=== PATIENT | female | born 1955 | race Caucasian/White ===

== ENCOUNTER 2020-07-01 15:01 | Outpatient (CLI) | payer MEDICARE, SELFPAY ==
[2020-07-01 15:24] LABS: Basophils Percent Auto 0.4 % (0.2-1.2); Eosinophils Absolute Auto 0.3 K/mm3 (0-0.3); Eosinophils Percent Auto 2.8 % (0-4.4); Hematocrit 35.3 % (37.0-47.0); Hemoglobin 11.1 g/dL (12.0-15.0); Immature Granulocyte Absolute 0.03 K/mm3 (0.00-0.031); Immature Granulocyte Percent A 0.3 % (0-0.5); Lymphocytes Absolute Auto 3.91 K/mm3 (0.9-3.2); Lymphocytes Percent Auto 42.6 % (18.3-44.2); Mean Corpuscular HGB Conc 31.4 g/dl (32-36); Mean Corpuscular Hemoglobin 29.5 pg (26-34); Mean Corpuscular Volume 93.9 fl (80-100); Mean Platelet Volume 9.5 fl (7.4-10.4); Monocytes Percent Auto 10.5 % (2.6-8.5); Neutrophils Percent Auto 43.4 % (45.5-73.1); Platelet Count Result 536 k/mm3 (150-375); Red Blood Count 3.76 M/mm3 (4.2-5.4); Red Cell Distribution Width 12.5 % (11.5-14.5); White Blood Count 9.2 K/mm3 (4.5-10.0)
[2020-07-01 16:39] LABS: Iron 84 ug/dL (37-170)
[2020-07-01 16:43] LABS: Alanine Aminotransferase 44 U/L (4-35); Albumin Level 4.6 g/dL (3.5-5.1); Alkaline Phosphatase 76 U/L (38-126); Anion Gap 9 mmol/L (8-16); Aspartate Amino Transferase 31 U/L (14-36); Bilirubin,Total 0.2 mg/dL (0.2-1.3); Blood Urea Nitrogen 26 mg/dL (7-17); CRP < 0.5 mg/dL (<1.0); Calcium 9.8 mg/dL (8.4-10.2); Carbon Dioxide 25 mmol/L (22-30); Chloride 103 mmol/L (98-107); Estimated Glomerular Filt Rate > 60; Glucose 106 mg/dL (65-105); Lactate Dehydrogenase 414 U/L (313-618); Potassium 4.6 mmol/L (3.4-5.0); Sodium 137 mmol/L (137-145)
[2020-07-01 16:48] LABS: Percent Iron Saturation 18 % (20-50)
[2020-07-01 16:53] LABS: Erythrocyte Sedimentation Rate 24 mm/hr (0-20)
[2020-07-01 17:45] LABS: Folic Acid 4.9 ng/mL (2.76->20)
== END 2020-07-01 15:02 | disposition home or self-care (01) ==
PROVIDERS: PCP Internal Medicine; Visit Provider Internal Medicine Hematology & Oncology
DX: D64.9 Anemia, unspecified (principal)
CPT/HCPCS: 36415; 80053; 82607; 82728; 82746; 83540; 83550; 83615; 85025; 85652; 86140

== ENCOUNTER 2020-08-19 00:20 | Outpatient (CLI) | payer MEDICARE, SELFPAY ==
[2020-08-19 19:00] LABS: SARS-CoV-2 RNA PCR Negative
== END 2020-08-19 00:21 | disposition home or self-care (01) ==
LOC: ANHCOVIDDT 00:20
PROVIDERS: PCP Internal Medicine; Visit Provider Internal Medicine Gastroenterology
DX: Z01.812 Encounter for preprocedural laboratory examination (principal); Z20.828 Contact with and (suspected) exposure to other viral communicable diseases
CPT/HCPCS: 87635; C9803; U0003

== ENCOUNTER 2020-08-21 01:02 | Day surgery (SDC) | payer MEDICARE, SELFPAY ==
[2020-08-14 09:52] VITALS: BMI 29.9
[2020-08-21 10:41] VITALS: BP 175/86; PULSE 77; RESP 18; TEMP 36.3; O2SAT 100; BMI 30.7
--- NOTE | 2020-08-21 10:47 | WPDANESEPPF ---
Anes - Initial Pre Proc Eval Procedure: Operation Date: 08/21/20 11:00 Proposed Procedures p Screening Colonoscopy - Robinson Doyle MD Date/Time: 08/21/20 10:47 Surgeon: Robinson Doyle MD Pre Op Diagnosis: neoplasm screening Patient Data Age: 64 Gender: F Height: 5 ft 1 in Weight: 73.7 kg Last Vital Signs Temp 36.3 C L 08/21/20 10:41 Pulse 77 08/21/20 10:41 Resp 18 08/21/20 10:41 BP 175/86 H 08/21/20 10:41 Pulse Ox 100 08/21/20 10:41 Allergies Allergy/AdvReac Type Severity Reaction Status Date / Time amlodipine Allergy Severe Swelling Verified 08/21/20 10:48 Penicillins Allergy Intermediate Swelling, Verified 08/21/20 10:48 codeine AdvReac Severe Other Verified 08/21/20 10:48 erythromycin base AdvReac Intermediate Other Verified 08/21/20 10:48 Home Medications Medication Instructions Recorded Confirmed Type atorvastatin 40 mg PO DAILY 07/31/20 08/14/20 History fenofibrate nanocrystallized 48 mg PO DAILY 07/31/20 08/14/20 History lisinopril 10 mg PO DAILY 07/31/20 08/14/20 History metoprolol succinate 25 mg PO DAILY 07/31/20 08/14/20 History montelukast 10 mg PO DAILY 07/31/20 08/14/20 History omeprazole 20 mg PO DAILY 07/31/20 08/14/20 History Ferous Gluconate 27 mg PO DAILY 08/14/20 08/14/20 History Patient hx anesthesia problems: none Family hx anesthesia problems: none PMFSH Past Medical History Medical History (Updated 08/21/20 @ 10:47 by Naren Mederos MD) GERD (gastroesophageal reflux disease) HTN (hypertension) Hyperlipidemia Obesity Surgical History Surgical History (Updated 08/21/20 @ 10:48 by Naren Mederos MD) H/O laparoscopy History of section Social History Social History Smoking packs per day: 1 Smoking cigarettes per day: 20.0 Years smoked: 9 Smoking pack-years: 9.00 Smoking status: Former smoker Tobacco type: cigarettes Alcohol intake: current Drinks per week: 3 Alcohol use details: WINE Substance use: never Substance use type: does not use Gender identity (if verbalized by the patient): Female Spiritual care concerns: No Anes - Eval Final PreProcedure Day of Procedure 08/21/20 10:47 Patient weight: obese Heart: regular rate and rhythm Lungs: clear to auscultation Airway: Mallampati scale class II Neurological: alert and oriented Last oral intake: >/= 8 hours ASA classification: II Emergent: no Anesthetic plan: proceed Anesthesia type and monitoring: general GIVS and standard monitoring Informed Consent: The patient's anesthetic plan and its attendant risks and benefits were discussed with the patient/family/POA. Questions were solicited and answers provided to the satisfaction of the patient/family/POA.
--- NOTE | 2020-08-21 10:55 | PM.HPGS ---
History of Present Illness History of Present Illness Consent: Risks, benefits, and alternatives have been discussed and questions answered. Patient agrees to proceed with procedure. Chief complaint: neoplasm screening Narrative: Kathia Lorenzo is a 64 year old W female referred for screening colonoscopy. Last colonoscopy was 11 years ago. Patient however does have a family history of colon cancer in her father. Patient also history of anemia. I did perform a gastroscopy 2 years ago patient did have a gastric AVM and does have a prior to peptic ulcer disease. She denies any nonsteroidal inflammatory drugs. No change in bowel pattern no rectal bleeding no weight loss. PMFSH Past Medical History Medical History GERD (gastroesophageal reflux disease) HTN (hypertension) Hyperlipidemia Obesity Surgical History Surgical History H/O laparoscopy History of section Social History Social History Smoking packs per day: 1 Smoking cigarettes per day: 20.0 Years smoked: 9 Smoking pack-years: 9.00 Smoking status: Former smoker Tobacco type: cigarettes Alcohol intake: current Drinks per week: 3 Alcohol use details: WINE Substance use: never Substance use type: does not use Gender identity (if verbalized by the patient): Female Spiritual care concerns: No Meds Home Medications and Allergies Home Medications Medication Instructions Recorded Confirmed Type atorvastatin 40 mg PO DAILY 07/31/20 08/14/20 History fenofibrate nanocrystallized 48 mg PO DAILY 07/31/20 08/14/20 History lisinopril 10 mg PO DAILY 07/31/20 08/14/20 History metoprolol succinate 25 mg PO DAILY 07/31/20 08/14/20 History montelukast 10 mg PO DAILY 07/31/20 08/14/20 History omeprazole 20 mg PO DAILY 07/31/20 08/14/20 History Ferous Gluconate 27 mg PO DAILY 08/14/20 08/14/20 History Allergies Allergy/AdvReac Type Severity Reaction Status Date / Time amlodipine Allergy Severe Swelling Verified 08/21/20 10:48 Penicillins Allergy Intermediate Swelling, Verified 08/21/20 10:48 codeine AdvReac Severe Other Verified 08/21/20 10:48 erythromycin base AdvReac Intermediate Other Verified 08/21/20 10:48 Vital Signs Vital Signs - 24 hr 08/21/20 10:41 Temperature 36.3 C L Pulse Rate 77 Respiratory Rate 18 Blood Pressure 175/86 H Pulse Oximetry 100 Exam Const: Orientation/consciousness: patient oriented x3 Resp: Auscultation: clear to auscultation bilaterally Cardio: Rate: regular rate Rhythm: regular rhythm Heart sounds: no murmurs GI: GI Palp: Yes Soft to palpation, No Tenderness to palpation present (GI), Yes No hepatosplenomegaly present and No Palpable mass present Auscultation: normal bowel sounds Neuro: General: patient oriented x3 and no focal motor deficits Extrem: General: no pedal edema Assessment and Plan Additional Plan Screening colonoscopy and family history of colon cancer in her father
[2020-08-21] MEDS: LACTATED RINGERS 1,000 ML 150 ML IV CONT (11:03)
[2020-08-21] MEDS: SIMETHICONE ORAL SUSPENSION 20 MG/0.3 ML 30 ML BOTTLE 0.6 ML IRRIGATION (11:50)
[2020-08-21 11:54] VITALS: BP 154/93; PULSE 83; RESP 24; O2SAT 100
[2020-08-21 12:04] VITALS: BP 149/78; PULSE 77; RESP 22; O2SAT 100
[2020-08-21 12:14] VITALS: BP 162/84; PULSE 69; RESP 21; O2SAT 100
== END 2020-08-21 12:25 | disposition home or self-care (01) ==
PROVIDERS: PCP Internal Medicine; Visit Provider Internal Medicine Gastroenterology
PROC: 0DJD8ZZ Inspection of Lower Intestinal Tract, Via Natural or Artificial Opening Endoscopic (ICD-10-PCS; CPT 45378; principal; 2020-08-21 11:00)
DX: Z12.11 Encounter for screening for malignant neoplasm of colon (principal); K64.8 Other hemorrhoids; D64.9 Anemia, unspecified; Z80.0 Family history of malignant neoplasm of digestive organs; I10 Essential (primary) hypertension; E78.5 Hyperlipidemia, unspecified; K21.9 Gastro-esophageal reflux disease without esophagitis; E66.9 Obesity, unspecified; Z68.30 Body mass index [BMI] 30.0-30.9, adult; Z87.891 Personal history of nicotine dependence
CPT/HCPCS: G0105; J2704; J7120